=== PATIENT | female | born 1965 | race Caucasian/White ===

== ENCOUNTER 2024-08-15 11:57 | Emergency (ER) | payer OTHER, SELFPAY ==
--- NOTE | 2024-08-15 12:04 | ED_ITS ---
HPI - Dizziness General Stated Complaint: Dizziness/Unable to Eat Or Walk Properly Time Seen by Provider: 08/15/24 12:30 Source: patient, RN notes reviewed and old records reviewed Mode of arrival: ambulatory Limitations: no limitations History of Present Illness HPI Narrative: Patient presents accompanied by her . She is complaining of 4 days of dizziness that is worsening. She denies any injury, including head injury. States that dizziness is causing her to have difficulty eating, has not eaten since yesterday. She is also having at difficulty ambulating without assistance due to her dizziness. Of note blood pressure is elevated at 170 8/112 manually. Patient reports that she has been told in the past that she has high blood pressure, but it has never been this high and she does not take any medications. She denies any chest pain or shortness breath. She agrees to emergency department transfer, will take her by private vehicle Related Data Allergies Allergy/AdvReac Type Severity Reaction Status Date / Time No Known Allergies Allergy Verified 08/15/24 12:12 Review of Systems Review of Systems: All systems reviewed & are unremarkable except as noted in HPI and below Constitutional: Constitutional: Reports as per HPI, Reports no additional constitutional complaints and Reports weakness ENT: Reports system reviewed and no additional complaints, except as documented Cardiovascular: Cardiovascular: Reports no additional cardiovascular complaints Respiratory: Respiratory: Reports no additional respiratory complaints Gastrointestinal: Gastrointestinal: Reports no additional gastrointestinal complaints Neurologic: Reports vertigo, Reports dizziness and Reports disequilibrium [facility] Family History Family History Mother Hypertension Father Family history of coronary artery disease Patient's father is Other Diabetes mellitus Family history of arthritis Social History Social History Smoking status: Never smoker Alcohol intake: current Comments At the time of my signature, I reviewed and agree with the nursing past medical, surgical, social, and family history. There is no relevant family history pertinent to the patient complaint. Exam Const: General: cooperative, no acute distress, alert and awake Orientation/consciousness: oriented to person, oriented to place and oriented to time HENMT: Head: normal to inspection Ears: TM's normal bilaterally Mouth: Yes moist mucous membranes Resp: Effort & Inspection: normal respiratory effort and able to speak in complete sentences Auscultation: clear to auscultation bilaterally, no crackles, no rales, no rhonchi and no wheezes Cardio: Palpation: normal PMI Rate: regular rate Rhythm: regular rhythm Heart sounds: S1 normal heart sound present and S2 normal heart sound present Neuro: General: oriented to person, oriented to place and oriented to time Cranial nerves: Yes CN's II-XII intact bilaterally Gait exam (Neuro): Assisted gait required (one person) Psych: Appearance: grossly normal Thought process: Normal thought process present Insight: Good insight present (Psych) Judgement: Good judgement present (Psych) Course Course Level of Care: Express Care Visit Vital Signs Vital signs: Reviewed Transfer Transfered to: [facility] Transportation: Other (Private vehicle driven ) Transfer rationale: Higher level of care Accepting physician: [facility] Transfer comments: Declined EMS MDM - Dizziness MDM Narrative Medical decision making narrative: Patient with elevated blood pressure, dizziness. She is advised to transfer to emergency department for further workup. Patient agrees to do so. Her does voice displeasure and becomes verbally abusive to staff Discharge instructions reviewed with patient, as well as provided in writing per nursing staff. The instructions also include specific and strict return/GO TO THE ER as well as f/u information. All questions have been answered, and the patient deny any further questions with discharge and discharge plan. Some parts of this dictation were generated by voice recognition software and may contain typographical and/or grammatical inaccuracies. Differential Diagnosis Differential diagnosis: Likely benign paroxysmal positional vertigo, cerebrovascular accident and other (Hypertensive crisis) Medical Records Attestation: I reviewed the patient's medical records. Discharge Plan Discharge Patient Language: Burmese Prescriptions: No Action meloxicam 15 mg tablet 15 mg PO DAILY Qty: 90 1RF Follow-up/Referrals: Natalie,Lilly Martinez MD [Primary Care Provider] -
[2024-08-15 12:08] VITALS: BP 175/111; PULSE 84; RESP 18; TEMP 36.5; O2SAT 99
[2024-08-15 12:50] VITALS: BP 178/112
== END 2024-08-15 13:00 | disposition short-term general hospital (02) ==
LOC: EXPCOLL 12:01
PROVIDERS: Emergency Provider Nurse Practitioner Family; PCP Family Medicine
DX: R42 Dizziness and giddiness (principal); I10 Essential (primary) hypertension
CPT/HCPCS: 99203; G0463

== ENCOUNTER 2024-08-15 13:18 | Emergency (ER) | payer OTHER, SELFPAY ==
--- NOTE | ~2024-08-15 | CT_ITS ---
Technique EXAMINATION: CT BRAIN W/O DATE: 08/15/2024 14:03 INDICATION: Dizziness TECHNIQUE: Computed tomography (CT) of the head was performed without intravenous contrast. The dose- length product was 529.67 mGy-cm. COMPARISON: No prior studies for comparison. FINDINGS: Normal brain parenchymal volume for age. Normal martell-white differentiation. No acute intrac ranial hemorrhage, infarction, mass or mass effect. No ventriculomegaly or midline shift. Midline sagittal images demonstrate a normal corpus callosum, c raniovertebral junction and sella turcica. Basilar cisterns are patent. Paranasal sinuses and mastoids are pneumatized. No depressed skull fractures. IMPRESSION: 1. No acute intracranial abnormality. Reviewed, dictated and finalized at location B. 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
--- NOTE | ~2024-08-15 | XR_ITS ---
EXAMINATION: XR chest 2V DATE: 08/15/2024 13:58 INDICATION: Dizziness. Hypertension. TECHNIQUE: PA and lateral views of the chest were obtained. COMPARISON: Chest radiograph and CT dated 10/28/2017 FINDINGS: The lungs are clear with no focal airspace opacities, pulmonary edema, pleural effusion or pneumothor ax. The cardiomediastinal silhouette is normal. Thoracic spondylosis. IMPRESSION: 1. No acute cardiopulmonary disease. Reviewed, dictated and finalized at location A. ESS AUTOMATION ENGINEER
--- OUTSIDE RECORDS SUMMARY | 2024-08-15 13:22 | XMS_ITS | Clinical Summary ---
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 Name Role Phone Unavailable Primary Care Provider Unavailabl e Social History Tobacco Use Types Packs/Day Years Used Date Smoking Tobacco: Never Assessed Comments Unknown Sex and Gender Information Value Date Recorded Sex Assigned at Not on file Legal Sex Female 6:31 PM CDT Gender Identity Not on file Sexual Orientation Not on file Plan of Treatment Health Maintenance Due Date Last Done Comments Cervical Cancer Screening Pa p Smear (Age 30 to 64) Every 3 Years 1963 Colorectal Cancer Screening Colonoscopy (10 Years) 1963 Annual Physical 1966 Hepatitis C 1981 DTaP, Tdap and Td Vaccines ( 1 - Tdap) 1982 Cervical Cancer Screening Pa p with HPV Testing (Age 30 to 64) Every 5 Years 1993 Cervical Cancer Screening with HPV 1993 Mammogram Screening 2003 Zoster Vaccines (1 of 2) 2013 COVID-19 Vaccine (2023-2 5 season) 2024 Influenza Adult (#1) 2024 RSV Immunization or 60+ Years (1 - 1-dose 75+ series) 2038 Meningococcal B Vaccine Aged Out No l onger eligible based on patient's age to complete this topic Meningococcal Vaccine Aged Out No pelon lamonte eligible based on patient's age to complete this topic Pneumococcal Vaccine: Pediat rics (0 to 5 Years) and At-Risk Patients (6 to 64 Years) Aged Out No longer eligible b ased on patient's age to complete this topic RSV Immunizations Under 20 Months Aged Out No longer eligible based on patient's age to complete this topic
[2024-08-15 13:33] VITALS: BP 176/92; PULSE 64; RESP 16; TEMP 36.7; O2SAT 100
--- NOTE | 2024-08-15 13:36 | ECG_ITS ---
Test Date: 2024-08-15 13:44:50 Measurements Intervals [place] Rate: 67 P: 48 MD: 160 QRS: -48 QRSD: 162 T: 99 QT: 458 QTc: 484 Interpretive Statements SINUS RHYTHM LEFT AXIS DEVIATION LEFT BUNDLE BRANCH BLOCK BASELINE ARTIFACT- I, II, III, AVR, AVL, AVF, V1-V6 ABNORMAL ECG No previous ECG available for comparison Electronically Signed On 08-15-2024 13:48:43 [employer] by Carlos Cox D.O.
[2024-08-15 14:11] LABS: Basophils Percent Auto 0.3 % (0.2-1.2); Eosinophils Absolute Auto 0.1 K/mm3 (0-0.3); Eosinophils Percent Auto 0.7 % (0-4.4); Hematocrit 48.4 % (37.0-47.0); Hemoglobin 15.6 g/dL (12.0-15.0); Immature Granulocyte Absolute 0.03 K/mm3 (0.00-0.031); Immature Granulocyte Percent A 0.3 % (0-0.5); Lymphocytes Absolute Auto 1.33 K/mm3 (0.9-3.2); Lymphocytes Percent Auto 15.3 % (18.3-44.2); Mean Corpuscular HGB Conc 32.2 g/dl (32-36); Mean Corpuscular Hemoglobin 29.3 pg (26-34); Mean Corpuscular Volume 90.8 fl (80-100); Mean Platelet Volume 10.5 fl (7.4-10.4); Monocytes Absolute Auto 0.5 K/mm3 (0.1-0.6); Monocytes Percent Auto 5.9 % (2.6-8.5); Neutrophils Absolute Auto 6.7 K/mm3 (1.3-6.7); Neutrophils Percent Auto 77.5 % (45.5-73.1); Platelet Count Result 232 k/mm3 (150-375); Red Blood Count 5.33 M/mm3 (4.2-5.4); Red Cell Distribution Width 14.5 % (11.5-14.5); White Blood Count 8.7 K/mm3 (4.5-10.0)
[2024-08-15 14:20] LABS: Alanine Aminotransferase 18 U/L (6-35); Albumin Level 4.5 g/dL (3.5-5.1); Alkaline Phosphatase 73 U/L (38-126); Anion Gap 6 mmol/L (4-12); Aspartate Amino Transferase 27 U/L (14-36); Bilirubin,Total 0.9 mg/dL (0.2-1.3); Blood Urea Nitrogen 12 mg/dL (7-17); Carbon Dioxide 27 mmol/L (22-30); Chloride 105 mmol/L (98-107); Estimated Glomerular Filt Rate > 60; Glucose 91 mg/dL (65-110); Potassium 4.2 mmol/L (3.4-5.0); Sodium 138 mmol/L (137-145)
--- OUTSIDE RECORDS SUMMARY | 2024-08-15 15:10 | XMS_ITS | Clinical Summary ---
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
[2024-08-15] MEDS: MECLIZINE HCL 25 MG TABLET PO (16:04)
[2024-08-15 16:13] VITALS: BP 162/102; PULSE 59; RESP 14; O2SAT 100
[2024-08-15 16:49] VITALS: BP 153/92; PULSE 72
--- NOTE | 2024-08-15 16:53 | ED_ITS ---
HPI - Dizziness General Chief Complaint: Dizziness Stated Complaint: HTN Time Seen by Provider: 08/15/24 15:05 History of Present Illness HPI Narrative: Patient is a 59-year-old female who presents ER with dizziness. Woke up from sleep with spinning dizziness or room. Occasionally nauseous. Worse when she lays down flat. Dizziness will fatigue if she sits still. Has had similar episodes in the past but were not as intense or persistent. This is been worsening over last 4 days. No difficulty with speech. No weakness or numbness in arm or leg. Related Data Allergies Allergy/AdvReac Type Severity Reaction Status Date / Time No Known Allergies Allergy Verified 08/15/24 12:12 Review of Systems 2 Review of Systems: All systems reviewed & are unremarkable except as noted in HPI and below Constitutional: Constitutional: Reports no additional constitutional complaints ENT: Reports system reviewed and no additional complaints, except as documented Cardiovascular: Cardiovascular: Reports no additional cardiovascular complaints Gastrointestinal: Gastrointestinal: Reports no additional gastrointestinal complaints Genitourinary: Genitourinary: Reports no additional female genitourinary complaints Musculoskeletal: Musculoskeletal: Reports no additional musculoskeletal complaints [facility] Past Medical History Medical History (Updated 08/15/24 @ 17:05 by Crow Stevenson MD) Pseudogout of right knee Essential (primary) hypertension Family History Family History Mother Hypertension Father Family history of coronary artery disease Patient's father is Other Diabetes mellitus Family history of arthritis Social History Social History Smoking status: Never smoker Alcohol intake: current Exam 2 Narrative: GENERAL: Well-appearing, well-nourished, and in no acute distress. HEAD: Normocephalic, atraumatic. EYES: PERRL and EOMI. ENT: Mucous membranes moist. TMs normal bilaterally. CHEST: Clear to auscultation. No respiratory distress. HEART: Regular rate and rhythm. Normal peripheral pulses. EXTREMITIES: Normal range of motion. No edema. SKIN: Warm, dry, no rash. NEURO: Alert and oriented x3. PSYCH: Normal mood and affect. Course Course Emergency Course: Patient feels improved with meclizine. Discussed imaging and lab results. Appropriate for discharge home. Vital Signs Vital signs: Vital Signs Temperature 98.0 F 08/15/24 13:33 Pulse Rate 64 08/15/24 13:33 Respiratory Rate 16 08/15/24 13:33 Blood Pressure 176/92 H 08/15/24 13:33 Pulse Oximetry 100 08/15/24 13:33 Temperature 98.0 F 08/15/24 13:33 Pulse Rate 72 08/15/24 16:49 Respiratory Rate 14 08/15/24 16:13 Blood Pressure 153/92 H 08/15/24 16:49 Pulse Oximetry 100 08/15/24 16:13 MDM - Dizziness Lab Data 08/15/24 13:50 08/15/24 13:50 Labs: Lab Results 08/15/24 Range/Units 13:50 WBC 8.7 (4.5-10.0) K/mm3 RBC 5.33 (4.2-5.4) M/mm3 Hgb 15.6 H (12.0-15.0) g/dL Hct 48.4 H (37.0-47.0) % MCV 90.8 (80-100) fl MCH 29.3 (26-34) pg MCHC 32.2 (32-36) g/dl RDW 14.5 (11.5-14.5) % Plt Count 232 (150-375) k/mm3 MPV 10.5 H (7.4-10.4) fl Immature Gran % (Auto) 0.3 (0-0.5) % Neut % (Auto) 77.5 H (45.5-73.1) % Lymph % (Auto) 15.3 L (18.3-44.2) % Morrill % (Auto) 5.9 (2.6-8.5) % Eos % (Auto) 0.7 (0-4.4) % Baso % (Auto) 0.3 (0.2-1.2) % Lymph # (Auto) 1.33 (0.9-3.2) K/mm3 Morrill # (Auto) 0.5 (0.1-0.6) K/mm3 Eos # (Auto) 0.1 (0-0.3) K/mm3 Baso # (Auto) 0.0 (0.0-0.1) K/mm3 Abs Immat Gran (auto) 0.03 (0.00-0.031) K/mm3 Absolute Neuts (auto) 6.7 (1.3-6.7) K/mm3 Absolute Nucleated RBC 0.000 (0.0-0.012) K/mm3 Nucleated RBC % 0.0 (0.0-0.2) % Sodium 138 (137-145) mmol/L Potassium 4.2 (3.4-5.0) mmol/L Chloride 105 (98-107) mmol/L Carbon Dioxide 27 (22-30) mmol/L Anion Gap 6 (4-12) mmol/L BUN 12 (7-17) mg/dL Creatinine 0.65 L (0.7-1.0) mg/dL Estim Creat Clear Calc Not Reportable Estimated GFR > 60 (59 - ) Glucose 91 (65-110) mg/dL Calcium 9.0 (8.4-10.2) mg/dL Total Bilirubin 0.9 (0.2-1.3) mg/dL AST 27 (14-36) U/L ALT 18 (6-35) U/L Alkaline Phosphatase 73 (38-126) U/L Troponin I 0.020 (0.000-0.034) ng/mL Total Protein 7.0 (6.3-8.2) g/dL Albumin 4.5 (3.5-5.1) g/dL Imaging Data Radiologist's impression: ITS Impressions Chest X-Ray 08/15/24 14:02 IMPRESSION: 1. No acute cardiopulmonary disease. Head CT 08/15/24 14:20 IMPRESSION: 1. No acute intracranial abnormality. ECG Data EKG #1: ECG completion date: 08/15/24 ECG completion time: 13:44 EKG Interpretation: normal rate (67), sinus rhythm and LBBB Discharge Plan Discharge Clinical Impression: Acute labyrinthitis Patient Disposition: Home, Self-Care Condition: Stable Instructions: Labyrinthitis (ED) Additional Instructions: Return ER if you have fever 100.4? F, you cannot keep down food water, you lose consciousness, or you have additional concerns. Patient Language: German Prescriptions: New meclizine 25 mg tablet 25 mg PO TID Qty: 20 0RF No Action meloxicam 15 mg tablet 15 mg PO DAILY Qty: 90 1RF Follow-up/Referrals: UNKNOWN,DOCTOR [Primary Care Provider] - 1 Week
[2024-08-15 17:15] VITALS: BP 156/99; PULSE 71; RESP 20; O2SAT 100
== END 2024-08-15 17:17 | disposition home or self-care (01) ==
PROVIDERS: Emergency Medicine; Emergency Provider Emergency Medicine
DX: H83.09 Labyrinthitis, unspecified ear (principal); I10 Essential (primary) hypertension; I44.7 Left bundle-branch block, unspecified
CPT/HCPCS: 36415; 70450; 71046; 80053; 84484; 85025; 93005; 99284; A9270

== ENCOUNTER 2024-12-24 15:53 | Outpatient (CLI) | payer OTHER, SELFPAY ==
--- NOTE | ~2024-12-24 | XR_ITS ---
EXAM: [id number] DATE: 12/24/2024 16:24 HISTORY: Knee pain. COMPARISON: None available. FINDINGS: Decreased mineralization. No fracture or dislocation. No lytic or blastic lesion. Chondroc alcinosis. Mild medial and lateral joint space narrowing. Mild tricompartmental osteophytosis. Small knee joint effusion. No erosion or periosteal change. Soft tissues within normal limits. IMPRESSION: Osteopenia. Mild tricompartmental left knee osteoarthritis. Chondrocalcinosis. Reviewed, dictated and finalized at location K. IMPRESSION: Osteopenia. Mild tricompartmental left knee osteoarthritis. Chondro calcinosis.
== END 2024-12-24 15:54 | disposition home or self-care (01) ==
PROVIDERS: PCP Family Medicine; Visit Provider Student in an Organized Health Care Education/Training Program
DX: M85.88 Other specified disorders of bone density and structure, other site (principal); M17.12 Unilateral primary osteoarthritis, left knee
CPT/HCPCS: 73560

== ENCOUNTER 2024-12-26 11:46 | Outpatient (CLI) | payer OTHER, SELFPAY ==
--- NOTE | ~2024-12-26 | XR_ITS ---
Lumbosacral Spine: AP and lateral views Clinical History: Pain Findings: The normal lordotic curve is maintained. No fracture seen. There is 5 mm anterolisthesis of L4 over L5. There is moderate to advanced facet arthropathy at L4-L5 and L5-S1. Intervertebral disc spaces are relatively well-preserved. The sacroiliac joints are normally outlined. Impression: 5 mm anterolisthesis of L4 over L5. Facet arthropathy, as above. Reviewed, dictated and finalized at location M. Impression: 5 mm anterolisthesis of L4 over L5. Facet arthropathy, as above.
== END 2024-12-26 11:47 | disposition home or self-care (01) ==
LOC: MICIMG 11:47
PROVIDERS: PCP Family Medicine; Visit Provider Student in an Organized Health Care Education/Training Program
DX: M43.16 Spondylolisthesis, lumbar region (principal); M47.896 Other spondylosis, lumbar region; M47.897 Other spondylosis, lumbosacral region
CPT/HCPCS: 72100

== ENCOUNTER 2025-03-14 23:38 | Emergency (ER) | payer OTHER, SELFPAY ==
--- NOTE | ~2025-03-14 | XR_ITS ---
EXAMINATION: XR knee LT 3V DATE: 03/15/2025 00:11 INDICATION: Anterior left knee pain TECHNIQUE: Anteroposterior, oblique and crosstable lateral views of the left knee were obtained COMPARISON: None. FINDINGS: Alignment is normal. No fracture. Joint spaces appear relatively preserved., Calcinosis in the medial and lateral compartments including along the femoral condyles and medial lateral menisci. Small joint effusion. Soft tissues are unremarkable. IMPRESSION: 1. Chondrocalcinosis at the left knee and small knee joint effusion. Reviewed, dictated and finalized at location A.
[2025-03-14 23:39] VITALS: BP 153/95; PULSE 78; RESP 14; TEMP 36.7; O2SAT 95
--- OUTSIDE RECORDS SUMMARY | 2025-03-15 00:56 | XMS_ITS | Clinical Summary ---
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
[2025-03-15] MEDS: KETOROLAC 15 MG/ML VIAL (*BKC) (02:35)
[2025-03-15 02:56] VITALS: BP 142/81; PULSE 76; RESP 17; TEMP 36.4; O2SAT 99
== END 2025-03-15 03:43 | disposition home or self-care (01) ==
PROVIDERS: Emergency Provider Emergency Medicine; PCP Family Medicine
DX: M25.562 Pain in left knee (principal); M11.262 Other chondrocalcinosis, left knee; M17.11 Unilateral primary osteoarthritis, right knee
CPT/HCPCS: 73562; 96372; 99283; J1885; J7512

== ENCOUNTER 2025-06-13 12:07 | Outpatient (CLI) | payer OTHER, SELFPAY ==
[2025-06-13 12:24] LABS: Hematocrit 50.9 % (37.0-47.0); Hemoglobin 16.9 g/dL (12.0-15.0); Immature Granulocyte Percent A 0.3 % (0-0.5); Lymphocytes Absolute Auto 1.79 K/mm3 (0.9-3.2); Mean Corpuscular HGB Conc 33.2 g/dl (32-36); Mean Corpuscular Hemoglobin 30.3 pg (26-34); Mean Corpuscular Volume 91.2 fl (80-100); Nucleated Red Blood Cells Absolute Auto 0.000 K/mm3 (0.0-0.012); Nucleated Red Blood Cells Perc 0.0 % (0.0-0.2); Platelet Count Result 230 k/mm3 (150-375); Red Blood Count 5.58 M/mm3 (4.2-5.4); White Blood Count 9.2 K/mm3 (4.5-10.0)
[2025-06-13 16:02] LABS: Alanine Aminotransferase 18 U/L (6-35); Albumin Level 4.5 g/dL (3.5-5.1); Alkaline Phosphatase 73 U/L (38-126); Anion Gap 9 mmol/L (4-12); Aspartate Amino Transferase 26 U/L (14-36); Bilirubin,Total 0.7 mg/dL (0.2-1.3); Blood Urea Nitrogen 15 mg/dL (7-17); Calcium 9.7 mg/dL (8.4-10.2); Carbon Dioxide 28 mmol/L (22-30); Chloride 101 mmol/L (98-107); Cholesterol 186 mg/dL (0-200); Estimated Glomerular Filt Rate > 60; Glucose 147 mg/dL (65-110); HDL Direct 73 mg/dL; Potassium 4.1 mmol/L (3.4-5.0); Sodium 138 mmol/L (137-145); Total Protein 7.8 g/dL (6.3-8.2); Triglycerides 119 mg/dL (<150)
== END 2025-06-13 12:08 | disposition home or self-care (01) ==
PROVIDERS: PCP Student in an Organized Health Care Education/Training Program; Visit Provider Student in an Organized Health Care Education/Training Program
DX: Z13.220 Encounter for screening for lipoid disorders (principal); I10 Essential (primary) hypertension
CPT/HCPCS: 36415; 80053; 80061; 85025